=== PATIENT | male | born 1940 | race Caucasian/White ===

== ENCOUNTER 2023-02-10 09:44 | Outpatient (RCR) | payer OTHER, SELFPAY | END 2023-02-10 23:59 | disposition home or self-care (01) | LOC: RPT 09:44 | PROVIDERS: ATTENDING PHYSICIAN Specialist; PRIMARYCARE PHYSICIAN Family Medicine | DX: Z47.1 Aftercare following joint replacement surgery (principal); Z96.611 Presence of right artificial shoulder joint; Z73.6 Limitation of activities due to disability | CPT/HCPCS: 97110; 97140; 97162 ==

== ENCOUNTER 2023-03-16 08:54 | Outpatient (RCR) | payer OTHER, SELFPAY | END 2023-03-16 23:59 | disposition home or self-care (01) | LOC: RPT 08:54 | PROVIDERS: ATTENDING PHYSICIAN Specialist; PRIMARYCARE PHYSICIAN Family Medicine | DX: Z47.1 Aftercare following joint replacement surgery (principal); Z73.6 Limitation of activities due to disability; M62.81 Muscle weakness (generalized); M25.511 Pain in right shoulder; Z96.611 Presence of right artificial shoulder joint | CPT/HCPCS: 97110; 97140 ==

== ENCOUNTER 2023-03-25 08:38 | Outpatient (RCR) | payer OTHER, SELFPAY | END 2023-03-25 23:59 | disposition home or self-care (01) | LOC: RPT 08:38 | PROVIDERS: ATTENDING PHYSICIAN Specialist; PRIMARYCARE PHYSICIAN Family Medicine | DX: Z47.1 Aftercare following joint replacement surgery (principal); Z73.6 Limitation of activities due to disability; M62.81 Muscle weakness (generalized); Z96.611 Presence of right artificial shoulder joint | CPT/HCPCS: 97110; 97140 ==

== ENCOUNTER → 2023-10-28 08:19 | Outpatient (REF) | payer OTHER, SELFPAY | LOC: MRI 3T 08:19 | PROVIDERS: ATTENDING PHYSICIAN Specialist; FAMILY PHYSICIAN Family Medicine | DX: F03.90 Unspecified dementia, unspecified severity, without behavioral disturbance, psychotic disturbance, mood disturbance, and anxiety (principal) | CPT/HCPCS: 70551 ==

== ENCOUNTER 2024-02-29 00:02 | Emergency (ER) | payer MEDICARE, OTHER, SELFPAY ==
[2024-02-29 00:24] VITALS: BP 116/51
--- NOTE | 2024-02-29 03:18 | ED.GENMED ---
History of Present Illness
General
Chief Complaint: Fall
Source: patient
Exam Limitations: none
Time Seen by Provider: 02/29/24 03:13
Nursing documentation reviewed up to this point in time: agreed with
History of Present Illness
History of Present Illness:
83-year-old male with a past medical history as noted presents to the emergency room from [facility] for evaluation after a fall. Patient apparently has a history of dementia. He is in long-term care at [facility] and apparently today was walking
in the halls and had an unwitnessed fall with head strike. He was found to have a laceration to frontal scalp and was sent to the ER for evaluation. No other apparent injuries. He is not on blood thinners. Patient is confused but apparently at
his baseline. He cannot tell me why he is here. He denies any pain on review of systems including denying headache, neck pain, back pain, chest pain, abdominal pain, pain in his extremities.
Past History
Past History
ED Past Medical History: HTN and Hypercholesterolemia; Negative IDDM or NIDDM
ED Past Surgical History: Negative Cardiac
Social History
Tobacco: Non-smoker
Alcohol: Occasional
Drug: None
Personal:
Living: with family
Employment: Retired
Family History
Family History: Negative Early CAD
Review of Systems
Review of Systems
Unable to obtain full review of systems at this time due to: dementia
All Other Systems: Not applicable
Phy Exam
Physical Exam
Physical Exam:
General: Sleeping comfortably in bed but arousable to voice, oriented to person but not place or time, follows commands and answers questions appropriately
Head: Normocephalic, patient has approximately 3 cm linear laceration frontal scalp roughly midline
Eyes: Conjunctiva normal, pupils equal round and reactive to light bilaterally
Throat: Airway intact, handling secretions, tongue atraumatic
Neck: Trachea midline, no cervical spine tenderness
Back: No signs of trauma to the back or flank and no tenderness in the thoracic or lumbar spine
Lungs: Breathing comfortably with no distress
Heart: Regular rate; no chest wall or rib tenderness
Abd: Soft, non distended, nontender
Neuro: No gross deficits, moving all extremities equally without focal deficit
Skin: Scalp laceration as above, no other abrasions, ecchymosis or other signs of trauma noted
Extremities: Atraumatic, warm and well-perfused with good pulses, no reproducible tenderness and allows for passive range of motion all joints of the upper and lower extremities without pain
Scores
Heart Failure Risk
Heart Failure Risk Score: Not Applicable
Heart Score for Chest Pain Patients
STEMI patient?: Not applicable
Withdrawal Assessment of Alcohol
Withdrawal Assessment Completed?: Not applicable
Course
Orders/Labs/Results
Orders:
Orders
02/29/24 00:11
CT Head W/o Iv Contrast Urgent
Comment:
Reason For Exam: fell, hit head
02/29/24 03:19
Lidocaine/Epinephrine/Tetracai [Let Topical Anesthetic Gel] 3 ml .ROUTE .[facility]
Vital Signs
Initial and Last Documented VS:
Initial Vital Signs
Temp Pulse Resp BP Pulse Ox
36.4 C 78 16 116/51 98
02/29/24 00:24 02/29/24 00:24 02/29/24 00:24 02/29/24 00:24 02/29/24 00:24
Last Documented Vital Signs
Temp Pulse Resp BP Pulse Ox
36.4 C 78 15 116/51 98
02/29/24 00:24 02/29/24 00:24 02/29/24 02:04 02/29/24 00:24 02/29/24 00:24
Procedures
Laceration Closure
Scalp:
Status of Wound: clean
Size of Wound in cm: 3
Description of Wound Edges: ragged
Preparation: cleaned with saline
Anesthesia: Topical-LET
Revision/Debridement: minor revision
Type of Closure: single layer closure
Skin Closure Material: 4-0 prolene
Number of sutures: 4
MDM/Problems Addressed
Differential Diagnosis Includes:
Traumatic injury�concussion, subarachnoid/subdural hemorrhage, minor head strike with scalp contusion/laceration
MDM/Problems Addressed:
83-year-old male with a history of dementia presents to the ER after an unwitnessed fall; sustained a head strike with laceration to the frontal scalp. He is not on blood thinners. No other apparent injuries. Vitals and exam as above. He was
sent for a CT head which was negative for any acute pathology on review of vision radiology report. Anesthetized, irrigated and repaired laceration as documented in procedure note. Stable for discharge back to halfway.
*Radiology
Radiology exam reviewed: preliminary read by ED provider and radiology read reviewed
*Pulse Oximetry
Patient hypoxic: no
*Critical Care Note
Total Time (30-74mins, 75-104mins- exclusive of procedures): Not Applicable
Data Reviewed
Source: patient, records and halfway
Patient Management
Discussion with other providers: skilled nursing staff (spoke directly with halfway staff)
ED Attending Note
-
Portions of this chart may have been created with voice recognition software.� Occasional wrong word or��sound alike� substitutions may have occurred due to the inherent limitations of voice recognition software.
Discharge Plan
Departure
Patient Disposition: Home (Routine Discharge)
Date of Disposition: 02/29/24
Time of Disposition: 03:50
Patient with high blood pressure during this ER visit?: No
Discharge Problem:
Laceration of scalp
Instructions: Laceration Repair With Stitches (DC)
Prescriptions:
No Action
simvastatin 40 mg Tablet
40 mg PO HS
lutein-zeaxanthin
1 cap PO HS
oxycodone 5 mg tablet
5 - 10 mg PO Q6H PRN (Reason: moderate-severe pain) Qty: 30 0RF
Rx Instructions:
1 tab for moderate pain, 2 if severe.
Dx total joint.
dexamethasone 4 mg tablet
4 mg PO BID Qty: 7 0RF
Rx Instructions:
Start night of discharge and take twice a day until finished.
Take with food.
ondansetron HCl 4 mg tablet
4 mg PO Q6H PRN (Reason: nausea and vomiting) Qty: 30 0RF
Rx Instructions:
Can take 1/2 hour prior to Oxycodone if experiencing recurrent nausea.
famotidine [Pepcid] 20 mg tablet
20 mg PO HS Qty: 30 0RF
Rx Instructions:
Take nightly while on Aspirin post-surgery to prevent GI upset.
mupirocin 2 % ointment
1 applic intranasal BID Qty: 1 0RF
Patient Comments:
last administered 12/15 a.m.
fluticasone propion-salmeterol [Advair HFA] 230-21 mcg/actuation Hfa Aerosol Inhaler
2 puff INHALATION [id number] PRN (Reason: SOB)
aspirin 325 mg tablet
325 mg PO DAILY Qty: 30 0RF
Rx Instructions:
Take daily x4 weeks for blood clot prevention.
docusate sodium [Colace] 100 mg capsule
100 mg PO BID Qty: 30 0RF
sennosides [senna] 8.6 mg tablet
17.2 mg PO BID Qty: 30 0RF
acetaminophen [Acetaminophen Extra Strength] 500 mg tablet
1,000 mg PO Q6H Qty: 60 0RF
Rx Instructions:
DO NOT exceed >4000 mg daily.
lisinopril-hydrochlorothiazide 20-25 mg Tablet
1 tab PO HS Qty: 0 0RF
Rx Instructions:
HOLD IF systolic blood pressure <130 while on Oxycodone.
Referrals:
[place],Valentin Justin, DO [Family Provider] - Follow up in 5-7 days
Activity Restrictions/Additional Instructions:
You were seen in the emergency room after a fall. Unfortunately you sustained a laceration to your scalp. This laceration was repaired with stitches. The stitches must be removed in 7 days. You can either return here to the emergency room,
follow-up with your primary doctor, or go to urgent care for suture removal. If he notes any signs of infection please return immediately.
Thank you for visiting the Emergency Department at [facility].
1. Please schedule a follow up appointment as directed. Call first thing tomorrow morning to make an appointment.
2. If indicated, please take your medications as instructed and indicated on discharge paperwork.
3. If any of your symptoms do not improve, or persist, or become more severe within 6-12 hours, please return to the emergency department for further care.
4. Please return to the emergency department if you develop a headache, neck pain/stiffness, fever greater than 100.4F, chest pain, shortness of breath, persistent nausea, vomiting, slurred speech, difficulty walking, numbness/tingling, weakness,
signs of infection or any other symptoms that are worrisome to you.
Please call [phone] if you have any questions.
Interventions
Interventions:
*Risk Screen - Suicide Last Done: 02/29/24 00:08
*General Assessment Last Done: 02/29/24 00:08
*Neglect/Abuse Screening Last Done: 02/29/24 00:08
*ED COVID-19 Vaccine History Last Done: 02/29/24 00:08
ED-Musculoskeletal Assessment Last Done: 02/29/24 00:08
ED- Neurological Assessment Last Done: 02/29/24 00:08
ED-Skin Assessment Last Done: 02/29/24 00:08
Discharge Date and Time
Print Language: INDONESIAN
[2024-02-29 03:55] VITALS: BP 123/49
[2024-02-29] MEDS: ADACEL 0.5 ML IM (05:09)
== END 2024-02-29 06:13 | disposition home or self-care (01) ==
LOC: EMR 00:02
PROVIDERS: EMERGENCY PHYSICIAN Emergency Medicine; FAMILY PHYSICIAN Internal Medicine
DX: S01.01XA Laceration without foreign body of scalp, initial encounter (principal); W19.XXXA Unspecified fall, initial encounter; Y93.01 Activity, walking, marching and hiking; I10 Essential (primary) hypertension; E78.00 Pure hypercholesterolemia, unspecified; F03.90 Unspecified dementia, unspecified severity, without behavioral disturbance, psychotic disturbance, mood disturbance, and anxiety
CPT/HCPCS: 99284; 12002; 90471; 70450; 90715

== ENCOUNTER 2024-03-08 16:54 | Inpatient (IN) | payer MEDICARE, OTHER, SELFPAY ==
[2024-03-08] VITALS (7 sets, daily range): BP systolic 102–161; BP diastolic 58–112
[2024-03-08 14:12] LABS: % Basophils 0.5 % (0-2); % Eosinophils 1.3 % (0-6); % Immature Granulocytes 0.4 % (0-0.5); % Lymphocytes 7.1 % (20.5-51.1); % Monocytes 7.8 % (1.7-9.3); % Neutrophils 82.9 % (42.2-75.2); Absolute Basophils 0.1 10^3/uL (0-0.2); Absolute Eosinophils 0.1 10^3/uL (0-0.7); Absolute Lymphocytes 0.7 10^3/uL (1.2-3.4); Absolute Monocytes 0.7 10^3/uL (0.1-0.6); Absolute Neutrophils 7.8 10^3/uL (1.4-6.5); Hematocrit 29.7 % (39.0-52.0); Hemoglobin 9.7 g/dL (13.0-18.0); Mean Corp Hgb Conc. 32.7 g/dL (33.0-37.0); Mean Corpuscular Hgb 31.8 pg (27.0-31.0); Mean Corpuscular Volume 97.4 fL (80.0-94.0); Mean Platelet Volume 9.7 fL (7.4-10.4); Nucleated Red Blood Cells % 0 % (-); Platelet Count 228 10^3/uL (130-400); Red Blood Cell Count 3.05 10^6/uL (4.70-6.10); Red Cell Dist. Width 12.5 % (11.5-14.5); White Blood Cell Count 9.4 10^3/uL (4.8-10.8)
[2024-03-08 14:36] LABS: Blood Urea Nitrogen 58 mg/dl (9-20); Calcium 8.9 mg/dl (8.4-10.2); Carbon Dioxide 27 mmol/L (22-30); Chloride 106 mmol/L (98-107); Glucose 119 mg/dl (70-99); Sodium 142 mmol/L (135-145)
[2024-03-08 14:37] LABS: COVID-19 Antigen Negative (Negative)
[2024-03-08 14:43] LABS: Troponin I 0.012 ng/ml
--- NOTE | 2024-03-08 14:50 | ED.GENMED ---
History of Present Illness
General
Chief Complaint: Failure to Thrive
Source: records and spouse
Exam Limitations: dementia
Time Seen by Provider: 03/08/24 13:59
Nursing documentation reviewed up to this point in time: agreed with
History of Present Illness
History of Present Illness:
83-year-old male dementia from his facility decreased p.o. intake decreased responsiveness for 2 days fell a few days ago seen in the ER had a CAT scan of his head and some sutures placed, since then he has not been himself per the , had an
x-ray of his knee recently which was negative, my evaluation he is resting comfortably arousable but does appear to be confused more so than his baseline per the also complaining of some left hip and thigh pain when ranged
Past History
Past History
ED Past Medical History: HTN and Hypercholesterolemia; Negative IDDM or NIDDM
ED Past Surgical History: Negative Cardiac
Social History
Tobacco: Non-smoker
Alcohol: Occasional
Drug: None
Personal:
Living: with family
Employment: Retired
Family History
Family History: Negative Early CAD
Review of Systems
Review of Systems
Unable to obtain full review of systems at this time due to: dementia
Other source history: family
All Other Systems: Not applicable
Phy Exam
Physical Exam
Physical Exam:
Physical Exam
General: Elderly male resting comfortably eyes closed
Neck: No jaundice
Heart: Regular
Lungs: No crackles
Abdomen: Nontender
Neuro: Pupils 4 OU, opens eyes to deep stimulation moves his arms legs to painful stimuli
Skin: Sutures of his left scalp
Psychiatric: Demented
Extremities: Mild pain with range of motion of his left hip and proximal thigh
Course
Orders/Labs/Results
Orders:
Orders
03/08/24 13:48
Electrocardiogram (*1) Urgent
Reason for Study: Fatigue / Weakness
03/08/24 13:49
EKG- Treatment ONCE
03/08/24 13:55
Basic Metabolic Panel Urgent
COVID-19 Antigen Urgent
Source: Nasal Swab
Complete Blood Count/With Diff Urgent
Troponin I Urgent
Influenza A+B Rapid Molecular Urgent
NIHARIKA Source: Nasal Swab
Specimen Description:
03/08/24 14:45
Hip, Left 2-3 Views [CR Hip - LT w/wo Pel 2-3 Vw*] Urgent
Comment:
Reason For Exam: FALL
Include a pelvis x-ray?: Yes
03/08/24 14:46
Straight cath- Treatment ONCE
Urinalysis Reflex To Culture Urgent
Femur, Left 2 View [CR Femur - Left Min 2 Vw] Urgent
Comment:
Reason For Exam: FALL
03/08/24 14:47
CT Cervical Spine W/o Iv Contr Urgent
Comment:
Reason For Exam: FALL
CT Head W/o Iv Contrast Urgent
Comment:
Reason For Exam: FALL
Cardiac Monitoring- Treatment ONCE
Abnormal Lab Results
03/08/24
13:55
RBC 3.05 L 10^6/uL
(4.70-6.10)
Hgb 9.7 L g/dL
(13.0-18.0)
Hct 29.7 L %
(39.0-52.0)
MCV 97.4 H fL
(80.0-94.0)
MCH 31.8 H pg
(27.0-31.0)
MCHC 32.7 L g/dL
(33.0-37.0)
Absolute Neuts (auto) 7.8 H 10^3/uL
(1.4-6.5)
Absolute Lymphs (auto) 0.7 L 10^3/uL
(1.2-3.4)
Absolute Monos (auto) 0.7 H 10^3/uL
(0.1-0.6)
Neutrophils % 82.9 H %
(42.2-75.2)
Lymphocytes % 7.1 L %
(20.5-51.1)
BUN 58 H mg/dl
(9-20)
Creatinine 1.7 H mg/dL
(0.7-1.3)
Glucose 119 H mg/dl
(70-99)
03/08/24 13:55
03/08/24 13:55
Vital Signs
Initial and Last Documented VS:
Initial Vital Signs
Temp Pulse Resp BP Pulse Ox
97.5 F 93 16 126/58 97
03/08/24 13:45 03/08/24 13:45 03/08/24 13:45 03/08/24 13:45 03/08/24 13:45
Last Documented Vital Signs
Temp Pulse Resp BP Pulse Ox
97.5 F 93 16 126/58 98
03/08/24 13:45 03/08/24 13:45 03/08/24 13:45 03/08/24 13:45 03/08/24 13:45
MDM/Problems Addressed
Differential Diagnosis Includes:
Deconditioning dehydration UTI delayed trauma hip fracture pelvic fracture
MDM/Problems Addressed:
Confusion
Chronic conditions affecting care: Neurological disorder
Acute Exacerbation and/or Progression of Chronic Illness: Neurological disorder
*Radiology
Radiology exam reviewed: preliminary read by ED provider
*Pulse Oximetry
Patient hypoxic: no
*EKG
Interpreted by ED Provider?: Yes
Interpretation: abnormal
Comparison EKG: no comparison EKG present
Heart Rate: 78
Rate: normal
Rhythm: sinus
Ischemia: non-specific ST changes
*Door Puller Interpretation
Rate: normal
Interpretation: normal
Heart Rate: 78
Rhythm: sinus
*Critical Care Note
Total Time (30-74mins, 75-104mins- exclusive of procedures): Not Applicable
Data Reviewed
Review of Other/Old Records Reveals: Labs and Records
Source: spouse, previous radiology exam and previous hospital records
ED Attending Note
-
Portions of this chart may have been created with voice recognition software.� Occasional wrong word or��sound alike� substitutions may have occurred due to the inherent limitations of voice recognition software.
Discharge Plan
Departure
Prescriptions:
No Action
simvastatin 40 mg Tablet
40 mg PO HS
lutein-zeaxanthin
1 cap PO HS
oxycodone 5 mg tablet
5 - 10 mg PO Q6H PRN (Reason: moderate-severe pain) Qty: 30 0RF
Rx Instructions:
1 tab for moderate pain, 2 if severe.
Dx total joint.
dexamethasone 4 mg tablet
4 mg PO BID Qty: 7 0RF
Rx Instructions:
Start night of discharge and take twice a day until finished.
Take with food.
ondansetron HCl 4 mg tablet
4 mg PO Q6H PRN (Reason: nausea and vomiting) Qty: 30 0RF
Rx Instructions:
Can take 1/2 hour prior to Oxycodone if experiencing recurrent nausea.
famotidine [Pepcid] 20 mg tablet
20 mg PO HS Qty: 30 0RF
Rx Instructions:
Take nightly while on Aspirin post-surgery to prevent GI upset.
mupirocin 2 % ointment
1 applic intranasal BID Qty: 1 0RF
Patient Comments:
last administered 10/31 a.m.
fluticasone propion-salmeterol [Advair HFA] 230-21 mcg/actuation Hfa Aerosol Inhaler
2 puff INHALATION [id number] PRN (Reason: SOB)
aspirin 325 mg tablet
325 mg PO DAILY Qty: 30 0RF
Rx Instructions:
Take daily x4 weeks for blood clot prevention.
docusate sodium [Colace] 100 mg capsule
100 mg PO BID Qty: 30 0RF
sennosides [senna] 8.6 mg tablet
17.2 mg PO BID Qty: 30 0RF
acetaminophen [Acetaminophen Extra Strength] 500 mg tablet
1,000 mg PO Q6H Qty: 60 0RF
Rx Instructions:
DO NOT exceed >4000 mg daily.
lisinopril-hydrochlorothiazide 20-25 mg Tablet
1 tab PO HS Qty: 0 0RF
Rx Instructions:
HOLD IF systolic blood pressure <130 while on Oxycodone.
Interventions
Interventions:
*Risk Screen - Suicide Last Done: 03/08/24 13:45
*General Assessment Last Done: 03/08/24 13:45
*Neglect/Abuse Screening Last Done: 03/08/24 13:45
ED- Fall Risk Assessment Last Done: 03/08/24 13:45
*ED COVID-19 Vaccine History Last Done: 03/08/24 13:45
Discharge Date and Time
Print Language: HEBREW
--- NOTE | 2024-03-08 16:57 | HPS.HSE ---
Family Physician
-
Family Physician: Valentin Manriquez, DO
Chief Complaint
-
Failure to thrive/weakness/altered mental status
History of Present Illness
83 years old male was brought in from [facility]. Patient is nonverbal and unable to provide history due to dementia. I called his over the phone and she provided the following history
Patient was brought in from [facility] due to altered mental status. He has not woken up in last 2 days, remained sleepy and sometimes with open eyes. He has not eaten for 2 days also. Patient nonverbal for almost a month. He had a fall last
weekend and was brought into [facility] on ER with imaging studies that showed no acute fracture or intracranial abnormality.
Patient was homebound until December 2023 when he was admitted to [facility]/psychiatry unit and he remained there for almost 2 weeks. He was placed on medications for dementia with behavioral changes. Patient was admitted to [facility]
group home, he did fairly well at the beginning but his condition started to deteriorate. He has not talked in almost a month. He was eating until 2 days ago. reported that he always complained of pain in his legs and his hips in the past.
No fevers. No history of choking or aspiration.
In the ER, he did not have leukocytosis, creatinine 1.7. Potassium is pending. Sodium 142.
Medical History
Past Medical History
Past Medical History: Reports Other (HTN,hyperlipidemia, frontotemporal dementia, depression, aphasia, CKD. )
Past Surgical History: Reports Other (No recent major surgery )
Social History
Unable to obtain full social history at this time due to: Dementia
Family History
Family History: Unable to Obtain (dementia )
Allergies / Home Medications
Allergies reflects when Allergies were last updated in [employer].
Home Medications with original date entered in [employer]
Allergy/Medication List:
Allergies
Allergy/AdvReac Type Severity Reaction Status Date / Time
No Known Allergies Allergy Verified 02/29/24 00:08
Home Medications
acetaminophen 325 mg tablet 650 mg PO Q6HPRN PRN mild pain/fever>100.4 03/08/24
bacitracin 500 unit/gram topical ointment 1 applic topical BID scalp suture site 03/08/24
bisacodyl 10 mg rectal suppository 10 mg MS DAILYPRN PRN if mom ineffective 03/08/24
clonazepam 0.5 mg tablet 0.5 mg PO TID 03/08/24
donepezil 10 mg tablet 10 mg PO HS 03/08/24
magnesium hydroxide 400 mg/5 mL oral suspension (Milk of Magnesia) 30 ml PO [id number] PRN no bm in 3 days 03/08/24
melatonin 3 mg tablet 3 mg PO HS 03/08/24
quetiapine 200 mg tablet 200 mg PO HS 03/08/24
quetiapine 50 mg tablet 50 mg PO DAILY 03/08/24
sodium phosphates 19 gram-7 gram/118 mL enema (Fleet Enema) 118 ml MS DAILYPRN PRN if suppository ineffective 03/08/24
trazodone 50 mg tablet 25 mg PO HS 03/08/24
Review of Systems
-
Unable to obtain full review of systems at this time due to: Dementia
Physical Exam
Vital Signs
Vital Signs
Temp Pulse Resp BP Pulse Ox
97.5 F 80 13 124/59 99
03/08/24 13:45 03/08/24 15:06 03/08/24 15:06 03/08/24 15:06 03/08/24 15:06
Physical Exam
General: No Apparent Distress and Appears Chronically Ill
HEENT: Atraumatic
Respiratory: Decreased Breath Sounds; No Wheezes
Cardiac: S1/S2
GI: Soft, Non Tender and Non Distended
Rectal: No Maroon Stools
Genito-urinary: Clear Urine
Musculoskeletal: No Cyanosis and No Edema
Skin: Warm; No Jaundice
Neuro: Awake (non verbal, open eyes, staring at times, did not follow commands. )
Psych: Apparent Dementia
Laboratory Results
-
03/08/24 13:55
Laboratory Results
Total Bilirubin Cancelled 03/08/24 13:55
AST Cancelled 03/08/24 13:55
ALT Cancelled 03/08/24 13:55
Alkaline Phosphatase Cancelled 03/08/24 13:55
Troponin I 0.012 ng/ml 03/08/24 13:55
Impression/Plan
-
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
# Change in mental status
Admit the patient to the hospital
Rule out infectious/medication side effects/worsening dementia and failure to thrive
Stat CT of the head. Scan of the head done 02/28 after a fall showed moderate atrophy with no acute intracranial abnormality.
Will do blood culture, urine test and culture if needed
Patient seems to have mild cough in the ER, Order chest x-ray
Patient seems to express pain while palpating his abdomen, not distended, , Will do CT scan of the chest/abdomen/pelvis as patient unable to provide history and to rule out major pathologies.
Give IVF
Speech therapy
PT/OT evaluation, although patient seems to have significantly diminished physical performance status
Will lower the doses of quetiapine, clonazepam and follow-up with psychiatry recommendations
Monitor temperature curve, vitals signs
Continue with supportive care
# Acute kidney injury. We do not have his baseline creatinine.
Per record chronic kidney disease.
Will give IV fluid, bladder scan did not show retention.
# History of dementia with behavioral changes
I reviewed his antipsychotic medications with , will keep medications but lowered the doses,
Consult psychiatry, appreciate help
Total time spent to see the patient, examine the patient, review data and lab results, discussed treatment plan with patient, his , ER doctor and nursing staff around 75 minutes
[2024-03-08 17:06] LABS: Urine Albumin Trace (Neg - Trace); Urine Bilirubin Negative (Negative); Urine Character Clear (Clear); Urine Color Yellow; Urine Glucose Negative (Negative); Urine Ketone Negative (Negative); Urine Leukocyte Negative (Negative); Urine Nitrite Negative (Negative); Urine Occult Blood Negative (Negative); Urine Urobilinogen Negative (Neg - 1+)
[2024-03-08 17:30] LABS: Blood Urea Nitrogen 57 mg/dl (9-20); Calcium 9.3 mg/dl (8.4-10.2); Carbon Dioxide 29 mmol/L (22-30); Chloride 104 mmol/L (98-107); Glucose 110 mg/dl (70-99); Potassium 4.6 mmol/L (3.5-5.1); Sodium 142 mmol/L (135-145); eGFR 37.35
[2024-03-08] MEDS: NSS 1000 IV (17:38)
[2024-03-08] MEDS: ARICEPT 10 MG PO (21:33)
[2024-03-08] MEDS: SENOKOT 17.2 MG PO (21:33)
[2024-03-08] MEDS: KLONOPIN 0.5 MG PO (21:33)
[2024-03-08] MEDS: PEPCID 20 MG PO (21:33)
[2024-03-08] MEDS: DESYREL 25 MG PO (21:33)
[2024-03-09 07:00] LABS: Hematocrit 27.1 % (39.0-52.0); Hemoglobin 9.2 g/dL (13.0-18.0); Mean Corp Hgb Conc. 33.9 g/dL (33.0-37.0); Mean Corpuscular Hgb 32.9 pg (27.0-31.0); Mean Corpuscular Volume 96.8 fL (80.0-94.0); Mean Platelet Volume 9.8 fL (7.4-10.4); Platelet Count 247 10^3/uL (130-400); Red Cell Dist. Width 12.3 % (11.5-14.5); White Blood Cell Count 8.7 10^3/uL (4.8-10.8)
[2024-03-09 07:25] LABS: ALT (SGPT) 39 U/L (0-50); AST (SGOT) 53 U/L (17-59); Alkaline Phosphatase 123 U/L (38-126); Blood Urea Nitrogen 45 mg/dl (9-20); Calcium 8.8 mg/dl (8.4-10.2); Carbon Dioxide 26 mmol/L (22-30); Chloride 105 mmol/L (98-107); Estimated Creatinine Clearance 36 ml/min; Glucose 86 mg/dl (70-99); Potassium 3.8 mmol/L (3.5-5.1); Sodium 138 mmol/L (135-145); Total Bilirubin 0.6 mg/dl (0.2-1.3); Total Protein 5.5 g/dl (6.3-8.2); eGFR 55.19
[2024-03-09 07:30] VITALS: BP 161/76
[2024-03-09] MEDS: SENOKOT 17.2 MG PO ×2 (08:00→21:13)
[2024-03-09] MEDS: KLONOPIN 0.5 MG PO (08:00)
[2024-03-09] MEDS: SEROQUEL 50 MG PO (08:00)
--- NOTE | 2024-03-09 09:34 | W.PN.HOSP.TC ---
Today's Communication/Plan
-
continue with mild IVF
f/w psych recommendations
Assessment / Plan
Assessment / Plan
Physical Exam
General: No Apparent Distress and Appears Chronically Ill
HEENT: Atraumatic
Respiratory: Decreased Breath Sounds; No Wheezes
Cardiac: S1/S2
GI: Soft, Non Tender and Non Distended
Rectal: No Maroon Stools
Genito-urinary: Clear Urine
Musculoskeletal: No Cyanosis and No Edema
Skin: Warm; No Jaundice
Neuro: Awake (non verbal, open eyes, staring at times, did not follow commands. )
Psych: Apparent Dementia
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
# Change in mental status
Rule out infectious/medication side effects/worsening dementia and failure to thrive
No signs of active infection, normal WBC, no fevers
He seems more alert today, still unable to hold conservation
CT of the head: No CT evidence for acute intracranial hemorrhage. Positive atrophy and volume loss of cerebrum and cerebellum.
Urine test clean
Negative COVID & Flu.
CT Chest/ abdomen/ pelvis showed no acute findings but plethora of findings including calcific atherosclerotic plaques in arteries/groundglass opacities in lungs, sterile coral colitis/fecal impaction, abdominal aortic aneurysm 2.3 cm in diameter.
Speech therapy is recommending NPO, will continue modified diet as comfort feeding.
PT/OT evaluation, although patient seems to have significantly diminished physical performance status
Lowered the doses of quetiapine, clonazepam and follow-up with psychiatry recommendations
Monitor temperature curve, vitals signs
Continue with supportive care
# Acute kidney injury.
Creatinine came down after IVF
Per record chronic kidney disease.
# Elevated BP
Could be untreated primary HTN
Will do oral amlodipine
# Scalp wound
he scratched, re-dressing the wound.
# History of dementia with behavioral changes
I reviewed his antipsychotic medications with ,
Seems approaching advanced stage of dementia.
Consult psychiatry, appreciate help
Total time spent to see the patient, examine the patient, review data and lab results, discussed treatment plan with patient,and nursing staff around 55 minutes
Anticipated Discharge: > 48 hours
Subjective/Interval History
-
Date of Service: March 09, 2024
Objective Data
-
Labs:
Laboratory Results
03/09/24
06:40
WBC 8.7
Hgb 9.2 L
Hct 27.1 L
Plt Count 247
Sodium 138
Potassium 3.8
Chloride 105
Carbon Dioxide 26
BUN 45 H
Creatinine 1.3
Glucose 86
Calcium 8.8
Total Bilirubin 0.6
AST 53
ALT 39
Alkaline Phosphatase 123
Vital Signs:
Vital Signs
Temp Pulse Resp BP Pulse Ox
98.7 F 81 16 161/76 93
03/09/24 07:30 03/09/24 07:30 03/09/24 07:30 03/09/24 07:30 03/09/24 07:30
[2024-03-09] MEDS: DULCOLAX 10 MG PO (09:50)
[2024-03-09 10:08] VITALS: BP 126/68; PULSE 99; O2SAT 99
[2024-03-09 10:17] VITALS: BP 126/98; PULSE 98; O2SAT 99
--- NOTE | 2024-03-09 10:44 | PTOTSP ---
ST Acute Care Evaluation
Pt currently presents with clinical signs of suspected moderately-severe pharyngoesophageal dysphagia characterized by immediate and delayed weak coughing and/or throat clearing responses to ingestion of small and large quantities of both thin and
thick consistencies indicative of suspected airway invasion from either ingestion and/or regurgitation - possibly due to reflux/esophageal dysfunction.
Recommendations:
- NPO except only CRITICAL meds in puree ONLY when pt is fully awake and alert. No ARHP at this time.
- Consider initiating GOC conversation - pt's dysphagia could be associated with medication regimen vs. progression of dementia. Instrumental swallow study could be considered; however, feeding tubes are not recommended in this population of
patients.
- Aspiration precautions: HOB upright as often as possible; oral care QID.
- OFFSET SECOND PRESS OPERATOR to f/u to re-assess pt's candidacy to resume PO intake and to determine if pt would be appropriate for an instrumental swallow study if it is in line with the pt's GOC.
[2024-03-09 12:12] VITALS: BMI 18.2
[2024-03-09] MEDS: D5/0.9% SODIUM CHLORIDE 1000 IV (13:53)
[2024-03-09 15:20] VITALS: BP 149/70
--- NOTE | 2024-03-09 15:53 | CON.MD ---
Consultation - Medical
-
PATIENT SEEN CHART REVIEWED. SPOKE WITH DEVIN AND WITH DR TRUJILLO BY TEXT. AT BEDSIDE. PATIENT IS A 83 YR OLD MALE DX W FRONTO TEMPORAL DEMENTIA ACCORDING TO IN IN JUNE 2023. HE DID OKAY FOR A WHILE BUT THEN BECAME LESS AND LESS ABLE TO SLEEP
AND WOULD ROAM THE HOUSE AT ALL HOURS 'MOVING FURNITURE'. HIS PCP STARTED SEROQUEL 12.5 MG Q HS. HE WAS HOSP AT [facility] WHERE DOSE WAS INC AND TRAZODONE WAS ADDED. HE WAS T HERE FOR AN EXTENDED PERIOD BC SHE FELT HE COULD NO LONGER LIVE AT
HOME AND HE FINALLY WAS DC TO [facility]. FELT HE DID OKAY THERE FOR A WHILE. SHE SAID PEOPLE SEEMED TO CARE ALTHOUGH SHE FELT THEY WERE VERY UNDERSTAFFED AND THE PLACE WAS NOT IN GREAT REPAIR. SHE BELIEVES THE SEROQUEL WAS INC
THERE TO CURRENT DOSE AND ALSO KLONOPIN WAS ADDED. HE FELL RECENTLY AND WAS SEEN IN ER HEAD WAS SUTURED. IN THE LAST TWO DAYS HE HAS BECOME INCREASINGLY LISTLESS. SLEEPING MUCH OF THE DAY. NOT EATING OR DRINKING. VERY LITTLE COMMUNICATION AND HE
WAS BROUHT HERE. HE HAS NO PRIOR PSYCH HX OTHER THAN RECENTLY DX DEMENTIA. HE WAS NOT AT ALL COMMUNICATIVE WHEN I SAW HIM TODAY. I WAS ABLE TO ROUSE HIM. I ASKED HIM IF OUR TALKING WAS DISTURBING HIM AND HE OPENED HIS EYES, SAID 'YES' AND WENT
BACK TO SLEEP. HIS LUNCH TRAY WAS UNTOUCHED AT THE BEDSIDE. CURRENT MEDS SEROQUEL 50 AM 200 Q HS (ORDER REDUCED TO 50 Q AM HERE) TRAZODONE 25 Q HS ARICEPT 10 MG Q HS KLONOPIN 0.5 MG MG TID (REDUCED TO BID HERE) . OF NOTE PATIENT LISTED FULL
CODE. PATIENT'S HAD ALREADY MADE HIM DNR AT [facility] AND HAS CONSULTED W HOSPICE THERE FOR WHEN HE RETURNS.
PAST PSYCH HX NONE
MEDICAL HX SEE ABOVE HTN HLD CKD MIGRAINE MACROCYTIC ANEMIA ASTHMA APHASIC CAT SCAN WITHOUT ACUTE CHANGES OSTEOARTHRITIS DJD CREATININE NOW 1.3 HGB 9.2
FH NONE
SUBSTANCE ABUSE NONE
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
MSE PATIENT IS NOT VERY VERBAL. HE SPOKE ONE WORD 'YES' SEE ABOVE. HE WAS VERY SEDATED AND BARELY ROUSABLE. UNABLE TO ASSESS THOUGHT PROCESS MOOD ETC BUT BY HX VERY COGNITIVELY IMPAIRED
DX FRONTO TEMPORAL DEMENTIA SEDATION LIKELY SECONDARY TO PSYCHOTROPIC MEDICATION
RECOMMEND HOLD ALL SEDATING PSYCH MEDICATIONS FOR NOW. WILL MONITOR. 250 MG SEROQUEL PLUS KLONOPIN TID AND TRAZODONE AT COULD BE THE REASON FOR HIS SUDDEN SEDATION. HAVE AMENDED FULL CODE TO DNR STATUS PER WHO HAS ALREADY SPOKEN W
HOSPICE AT [facility]. CHECK B12 FOLATE AND TSH. WILL SEE PATIENT IN AM.
[2024-03-09 18:42] LABS: TSH 2.55 uIU/ml (0.47-4.68)
[2024-03-09 19:17] LABS: Vitamin B12 522 pg/ml (239-931)
[2024-03-09] MEDS: MIRALAX PO (21:10)
[2024-03-09] MEDS: DESYREL 50 MG PO (21:13)
[2024-03-09] MEDS: ARICEPT 10 MG PO (21:14)
[2024-03-09 23:15] VITALS: BP 167/92
[2024-03-10] MEDS: D5/0.9% SODIUM CHLORIDE 1000 IV (03:26)
[2024-03-10 06:20] LABS: Hemoglobin 10.1 g/dL (13.0-18.0); Mean Corp Hgb Conc. 33.7 g/dL (33.0-37.0); Mean Corpuscular Hgb 32.3 pg (27.0-31.0); Mean Corpuscular Volume 95.8 fL (80.0-94.0); Mean Platelet Volume 9.7 fL (7.4-10.4); Platelet Count 277 10^3/uL (130-400); Red Blood Cell Count 3.13 10^6/uL (4.70-6.10); Red Cell Dist. Width 11.9 % (11.5-14.5); White Blood Cell Count 6.1 10^3/uL (4.8-10.8)
[2024-03-10 06:54] LABS: ALT (SGPT) 34 U/L (0-50); AST (SGOT) 41 U/L (17-59); Albumin 3.2 g/dl (3.5-5.0); Alkaline Phosphatase 103 U/L (38-126); Blood Urea Nitrogen 33 mg/dl (9-20); Calcium 8.8 mg/dl (8.4-10.2); Carbon Dioxide 28 mmol/L (22-30); Chloride 107 mmol/L (98-107); Estimated Creatinine Clearance 42 ml/min; Glucose 114 mg/dl (70-99); Potassium 4.1 mmol/L (3.5-5.1); Sodium 141 mmol/L (135-145); Total Bilirubin 0.6 mg/dl (0.2-1.3); Total Protein 5.7 g/dl (6.3-8.2); eGFR > 60.00
[2024-03-10 08:08] VITALS: BP 133/69
[2024-03-10] MEDS: SENOKOT 17.2 MG PO ×2 (08:46→21:17)
[2024-03-10] MEDS: RISPERDAL 0.5 MG PO ×2 (08:46→21:17)
[2024-03-10] MEDS: MIRALAX 17 GRAMS PO (08:46)
--- NOTE | 2024-03-10 09:23 | PN.CDI ---
CDI
- -
CDI:
Physician Documentation Request
Admit Date: 03/08/24 16:54
Dear Doctor Aleksandr,
Patient admitted for change of mental status.
03/09 Nutrition Assessment: '124 lbs 12.506 oz BMI 18.2 underweight range. Pts weight previous admission listed as 143 lbs 09/29/23 reflective of a 19 lb (13%) in 5 months, significant
During visit RD able to visulize protrusion of clavical, temporal wasting, orbital area sunken in, and muscle wasting over calfs. With > 10% in 6 months and observed muscle and fat wasting pt meets AND/ASPEN criteria for moderate protein calorie
malnutrition of chronic illness.'
Based on the above information and your assessment, which of the following most accurately represents the patient's nutritional status?
Moderate protein calorie malnutrition
Other (please specify)
[place] Criteria (ACP Hospitalist 2017)
2 or more criteria must be present for either
non severe or severe malnutrition
Note that the criteria differs related to the
presence of an acute or chronic illness
Acute Illness Chronic Illness
Energy Intake Non Severe: <75% for >7 days Non Severe: <75% for >1 month
Severe: <50% for >5 days Severe: <75% for >1 month
Weight Loss Non Severe: 1-2% over 1 week Non Severe: 5% over 1 month
5% over 1 month 7.5% over 3 months
7.5% over 3 months 10% over 6 months
1 year N/A 20% over 1 year
Severe: >2% over 1 week Severe: >5% over 1 month
>5% over 1 month >7.5% over 3 months
>7.5% over 3 months >10% over 6 months
1 year N/A >20% over 1 year
Body Fat Non Severe: Mild Decrease Non Severe: Mild Loss
Severe: Moderate Decrease Severe: Severe Loss
Muscle Mass Non Severe: Mild Decrease Non Severe: Mild Loss
Severe: Moderate Decrease Severe: Severe Loss
Fluid Accumulation Non Severe: Mild Accumulation Non Severe: Mild Accumulation
Severe: Moderate to severe Severe: Moderate to severe
accumulation accumulation
Reduced Wood Scrap Handler Strength Non Severe: N/A Non Severe: N/A
Severe: Measurably reduced Severe: Measurably reduced
Additional criteria that can be used to Determine if Mild or Moderate Malnutrition (Merck Manual 2018)
Mild Moderate Severe
Albumin gm/dl <3.0 gm/dl <2.5 gm/dl <2.0 gm/dl
Pre Albumin mg/dl <15 gm/dl <10 mg/dl <5.0 mg/dl
BMI <18.5 <17 <16
Use of terms such as suspected, likely, concern for, or probable (associated with a specific diagnosis that is being evaluated, monitored, or treated as if it exists) are acceptable and can be coded in the inpatient setting, when documented at the
time of discharge.
Thank you,
Yelena Tyler RN, BSN
CDI Specialist
Available via [place] text
Please use your independent medical judgment in providing your response.
--- NOTE | 2024-03-10 10:02 | W.PN.HOSP.TC ---
Today's Communication/Plan
-
Starting Risperdal
Continue with comfort feeding
Stop IVF
Assessment / Plan
Assessment / Plan
Physical Exam
General: No Apparent respiratory Distress, Chronically Ill
HEENT: Atraumatic, temporal wasting
Respiratory: No Wheezes
Cardiac: S1/S2
GI: Soft, Non Tender and Non Distended
Rectal: No Maroon Stools
Genito-urinary: Clear Urine
Musculoskeletal: No Cyanosis and No Edema. Generalized poor muscle bulk.
Skin: Warm; No Jaundice
Neuro: Awake, said few words, did not follow commands. )
Psych: Apparent Dementia, agitated.
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
# Change in mental status
Ruled out infectious
Likely combination of TME and medication side effects + worsening dementia and failure to thrive
No signs of active infection, normal WBC, no fevers
CT of the head: No CT evidence for acute intracranial hemorrhage. Positive atrophy and volume loss of cerebrum and cerebellum.
Urine test clean
Negative COVID & Flu.
CT Chest/ abdomen/ pelvis showed no acute findings but plethora of findings including calcific atherosclerotic plaques in arteries/ground-glass opacities in lungs, sterile coral colitis/fecal impaction, abdominal aortic aneurysm 2.3 cm in diameter.
Speech therapy is recommending NPO, will continue modified diet as comfort feeding. planning to pursue comfort measures/ hospice
PT/OT evaluation, although patient seems to have significantly diminished physical performance status
Started on low dose Risperdal. Follow-up with psychiatry recommendations
Monitor temperature curve, vitals signs
Continue with supportive care
# Moderate to severe protein-calorie malnutrition.
# Acute kidney injury.
Creatinine came down to 1.1 from 1.7 after IVF
Per record chronic kidney disease.
# Elevated BP
Could be untreated primary HTN
PRN oral amlodipine
# Scalp wound
Not bleeding. Clean wound.
# History of dementia with behavioral changes
We are now adjusting his medications to keep him calm. It might be a heard thing to achieve due to advanced dementia.
Consult psychiatry, appreciate help
# Code status, DNR
Total time spent to see the patient, examine the patient, review data and lab results, discussed treatment plan with patient,and nursing staff around 55 minutes
Anticipated Discharge: 24 - 48 hours
Subjective/Interval History
-
Date of Service: March 10, 2024
No pain issues
Psych meds were held and he got agitated last night
Objective Data
-
Labs:
Laboratory Results
03/10/24
06:07
WBC 6.1
Hgb 10.1 L
Hct 30.0 L
Plt Count 277
Sodium 141
Potassium 4.1
Chloride 107
Carbon Dioxide 28
BUN 33 H
Creatinine 1.1
Glucose 114 H
Calcium 8.8
Total Bilirubin 0.6
AST 41
ALT 34
Alkaline Phosphatase 103
Vital Signs:
Vital Signs
Temp Pulse Resp BP Pulse Ox
97.4 F 79 16 133/69 94
03/10/24 08:08 03/10/24 08:08 03/10/24 08:08 03/10/24 08:08 03/10/24 08:08
I&O
03/09/24 03/10/24 03/11/24
06:59 06:59 06:59
Output Total 300 / 300
Balance -300 / -300
--- NOTE | 2024-03-10 12:31 | CM ---
Cm contacted Bunny's who lives in the community. 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
Plan: Return to [facility] when medically stable.
--- NOTE | 2024-03-10 12:53 | W.PN.UPDATE ---
Update Note
Progress Note Update
patient seen chart reviewed. spoke with nursing and with dr mallory via text. earlier this am patient was restless and naked. he appears to have woken up once seroquel etc was dc'ed. discussed with dr mallory small doses of risperdal which hopefully
will help him remain calm and relatively appropriate without oversedating him. he is easily rousable right now. lying in bed 'watching tv' calmly. ate a reasonable breakfast. yesterday too sedated to eat. b12 folate and tsh are nl. would continue
w risperdal as is. have dc'ed seroquel klonopin and trazodone instead of 'holding' them. try to avoid benzos if possible. will check in w him tomorrow.
[2024-03-10 16:18] VITALS: BP 127/76
--- NOTE | 2024-03-10 16:19 | CM ---
HERMELINDA Swan from [facility] requesting information on patient.
Per Aj they received the referral from [facility], they already have the MD order from [facility] and has already signed.
Per HERMELINDA Swan phone# [phone], he met with the patients spouse yesterday and will begin Hospice when patient returns to [facility].
He is requesting d/c instructions be emailed to [email or web address] or faxed to [phone]
TC to patients spouse and met with her in the room, she is agreeable to [facility] and agreeable to information being emailed to them on d/c.
TC to Verna from [facility] p# [phone], and updated her re hospice per spouse and AJ.
Patient is on the 3rd floor.
IMM completed.
[facility]
report# [phone]

[facility]
[email or web address] or fax to [phone]
[2024-03-10] MEDS: ARICEPT 10 MG PO (21:17)
[2024-03-10] MEDS: PEPCID 20 MG PO (21:17)
[2024-03-10] MEDS: MIRALAX PO (21:18)
[2024-03-10 23:55] VITALS: BP 160/76
[2024-03-11 07:10] VITALS: BP 153/69
[2024-03-11] MEDS: SENOKOT 17.2 MG PO (08:59)
[2024-03-11] MEDS: FLUSH (NSS) 1 FLUSH IV (08:59)
[2024-03-11] MEDS: RISPERDAL 0.5 MG PO ×2 (08:59→22:44)
--- NOTE | 2024-03-11 09:44 | W.PN.HOSP.TC ---
Today's Communication/Plan
-
dc to NH
Add PRN Clonazepam
Assessment / Plan
Assessment / Plan
Physical Exam
General: No Apparent respiratory Distress, Chronically Ill
HEENT: Atraumatic, temporal wasting
Respiratory: No Wheezes
Cardiac: S1/S2
GI: Soft, Non Tender and Non Distended
Rectal: No Maroon Stools
Genito-urinary: Clear Urine
Musculoskeletal: No Cyanosis and No Edema. Generalized poor muscle bulk.
Skin: Warm; No Jaundice
Neuro: Awake, said few words, did not follow commands. )
Psych: Apparent Dementia, agitated.
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
# Change in mental status
Ruled out infectious
Likely combination of TME and medication side effects + worsening dementia and failure to thrive
No signs of active infection, normal WBC, no fevers
d/w , plan to dc to NH with hospice consult
CT of the head: No CT evidence for acute intracranial hemorrhage. Positive atrophy and volume loss of cerebrum and cerebellum.
Urine test clean
Negative COVID & Flu.
CT Chest/ abdomen/ pelvis showed no acute findings but plethora of findings including calcific atherosclerotic plaques in arteries/ground-glass opacities in lungs, sterile coral colitis/fecal impaction, abdominal aortic aneurysm 2.3 cm in diameter.
Speech therapy is recommending NPO, but will continue modified diet as comfort feeding. planning to pursue comfort measures/ hospice
PT/OT evaluation, although patient seems to have significantly diminished physical performance status
Started on low dose Risperdal. Add PRN Clonazepam. Follow-up with psychiatry recommendations
Monitored temperature curve, vitals signs
Continue with supportive care
# Moderate to severe protein-calorie malnutrition.
# Acute kidney injury.
Creatinine came down to 1.1 from 1.7 after IVF
Per record chronic kidney disease.
# Elevated BP
Could be untreated primary HTN
PRN oral amlodipine
# Scalp wound
Not bleeding. Clean wound.
# History of dementia with behavioral changes
We are now adjusting his medications to keep him calm. It might be a heard thing to achieve due to advanced dementia.
Consult psychiatry, appreciate help
# Code status, DNR
Total time spent to see the patient, examine the patient, review data and lab results, discussed treatment plan with patient,and nursing staff around 55 minutes
Anticipated Discharge: Within 24 hours
Subjective/Interval History
-
Date of Service: March 11, 2024
Awake
Objective Data
-
Vital Signs:
Vital Signs
Temp Pulse Resp BP Pulse Ox
97.6 F 86 16 153/69 91
03/11/24 07:10 03/11/24 07:10 03/11/24 07:10 03/11/24 07:10 03/11/24 07:10
I&O
03/10/24 03/11/24 03/12/24
06:59 06:59 06:59
Output Total 300 / 300 650 / 650
Balance -300 / -300 -650 / -650
[2024-03-11] MEDS: MIRALAX PO ×2 (10:58→20:25)
--- NOTE | 2024-03-11 12:52 | W.PN.UPDATE ---
Update Note
Progress Note Update
patient seen chart reviewed. spoke with nursing. at bedside. patient has not required prn risperdal. he was calm and almost smiling when i saw him . was feeding him lunch. discussed trying to get mitts off this afternoon. the fear is that
he will fiddle with head sutures. dr mallory nursing and discussed giving him a small dose of klonopin o.25 this afternoon and seeing if they could remove mitts. will check in w him tomorrow
[2024-03-11] MEDS: KLONOPIN 0.25 MG PO ×3 (14:26→22:43)
[2024-03-11 15:10] VITALS: BP 154/75
--- NOTE | 2024-03-11 18:45 | PTCARENOTE ---
Pt agitated, pulled off his mitts. Pt denying pain/no nonverbal indicators of pain. Pt pulled off condom cath. Replaced condom cath, repositioned pt, offered food/liquid without any affect. Administered PRN Klonopin 0.25mg po at 1837, will monitor.
[2024-03-11] MEDS: SENOKOT PO (20:25)
[2024-03-11] MEDS: ARICEPT 10 MG PO (22:43)
[2024-03-11 23:39] VITALS: BP 110/79
--- NOTE | 2024-03-12 06:02 | PTCARENOTE ---
B/L mitt restraints removed at 0600 03/12. Will continue to monitor.
[2024-03-12 07:10] VITALS: BP 142/76
[2024-03-12] MEDS: MIRALAX PO (09:40)
[2024-03-12] MEDS: SENOKOT PO (09:40)
[2024-03-12] MEDS: RISPERDAL 0.5 MG PO (09:44)
[2024-03-12] MEDS: FLUSH (NSS) 1 FLUSH IV (09:45)
--- NOTE | 2024-03-12 11:35 | W.PN.HOSP.TC ---
Today's Communication/Plan
-
Increase PM dose of Risperdal
DC planning
Advance to small bites diet
Assessment / Plan
Assessment / Plan
Physical Exam
General: No Apparent respiratory Distress, Chronically Ill
HEENT: Atraumatic, temporal wasting, above forehead sutures.
Respiratory: No Wheezes
Cardiac: S1/S2
GI: Soft, Non Tender and Non Distended
Rectal: No Maroon Stools
Genito-urinary: Clear Urine
Musculoskeletal: No Cyanosis and No Edema. Generalized poor muscle bulk.
Skin: Warm; No Jaundice
Neuro: Awake, said few words, did not follow commands. )
Psych: Apparent Dementia, agitated.
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
# Change in mental status
Ruled out infectious
Likely combination of TME and medication side effects + worsening dementia and failure to thrive
No signs of active infection, normal WBC, no fevers
d/w , plan to dc to NH with hospice consult
CT of the head: No CT evidence for acute intracranial hemorrhage. Positive atrophy and volume loss of cerebrum and cerebellum.
Urine test clean
Negative COVID & Flu.
CT Chest/ abdomen/ pelvis showed no acute findings but plethora of findings including calcific atherosclerotic plaques in arteries/ground-glass opacities in lungs, sterile coral colitis/fecal impaction, abdominal aortic aneurysm 2.3 cm in diameter.
Speech therapy is recommending NPO, but will continue modified diet as comfort feeding. planning to pursue comfort measures/ hospice, requested to advance to regular diet, d/w nursing staff, will do small bites for now.
PT/OT evaluation, although patient seems to have significantly diminished physical performance status
Started on low dose Risperdal. Added PRN Clonazepam. Follow-up with psychiatry recommendations
Monitored temperature curve, vitals signs
Continue with supportive care
# Moderate to severe protein-calorie malnutrition.
# Acute kidney injury.
Creatinine came down to 1.1 from 1.7 after IVF
Per record chronic kidney disease, but GFR became normal here.
# Elevated BP
Could be untreated primary HTN
PRN oral amlodipine
# Scalp wound
Not bleeding. Clean wound.
# History of dementia with behavioral changes
We are now adjusting his medications to keep him calm. It might be a hard thing to achieve due to advanced dementia. d/w psych, change to 0.5 mg Risperdal in AM, 1 mg in evening. c/w Clonazepam PRN.
Consult psychiatry, appreciate help
# Code status, DNR
Total time spent to see the patient, examine the patient, review data and lab results, discussed treatment plan with patient,and nursing staff around 55 minutes
Anticipated Discharge: Today
Subjective/Interval History
-
Date of Service: March 12, 2024
He needed the clonazepam last night for restlessness
He is off restraints since yesterday
Objective Data
-
Vital Signs:
Vital Signs
Temp Pulse Resp BP Pulse Ox
98.1 F 93 16 142/76 99
03/12/24 07:10 03/12/24 07:10 03/12/24 07:10 03/12/24 07:10 03/12/24 07:10
I&O
03/11/24 03/12/24 03/13/24
06:59 06:59 06:59
Intake Total 840 / 840
Output Total 1150 / 1150
Balance -310 / -310
--- NOTE | 2024-03-12 14:28 | W.PN.UPDATE ---
Update Note
Progress Note Update
patient seen chart reviewed. spoke with nursing and with . patient continues w periods of restlessness and picking at scalp bandage. he seemed to me to be scratching and his skin is dry. wondered if it was itchy . discussed w and nursing
aquaphor to relieve dryness and perhaps a tegaderm dressing which would also be harder for him to dislodge. another idea would be a cotton skullcap. says he frequently wears a hat. discussed w dr shawnee keene in risperdal to o.5 in am and one at
hs. he did receive three klonopin prn yesterday. thought he might have been a little oversedated. today he was alert and wide awake and other than scratching at head was very calm and comfortable. will follow
[2024-03-12 15:10] VITALS: BP 113/74
[2024-03-12] MEDS: RISPERDAL 1 MG PO (17:05)
[2024-03-12] MEDS: ARICEPT 10 MG PO (20:57)
[2024-03-12] MEDS: PEPCID 20 MG PO (20:58)
[2024-03-12 23:30] VITALS: BP 133/66
[2024-03-13 07:30] VITALS: BP 156/63
[2024-03-13] MEDS: RISPERDAL 0.5 MG PO (08:50)
[2024-03-13] MEDS: SENOKOT 17.2 MG PO (08:50)
--- NOTE | 2024-03-13 11:41 | W.PN.HOSP.TC ---
Today's Communication/Plan
-
dc to SNF
prognosis poor
Risperdal per psych
Assessment / Plan
Assessment / Plan
Physical Exam
General: No Apparent respiratory Distress, Chronically Ill
HEENT: Atraumatic, temporal wasting, above forehead sutures.
Respiratory: No Wheezes
Cardiac: S1/S2
GI: Soft, Non Tender and Non Distended
Rectal: No Maroon Stools
Genito-urinary: Clear Urine
Musculoskeletal: No Cyanosis and No Edema. Generalized poor muscle bulk.
Skin: Warm; No Jaundice
Neuro: Awake, said few words, did not follow commands. )
Psych: Apparent Dementia, agitated.
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
# Change in mental status
Ruled out infectious
Likely combination of TME and medication side effects + worsening dementia and failure to thrive
No signs of active infection, normal WBC, no fevers
Dr. Brandon d/w , plan to dc to NH with hospice consult
CT of the head: No CT evidence for acute intracranial hemorrhage. Positive atrophy and volume loss of cerebrum and cerebellum.
Urine test clean
Negative COVID & Flu.
CT Chest/ abdomen/ pelvis showed no acute findings but plethora of findings including calcific atherosclerotic plaques in arteries/ground-glass opacities in lungs, sterile coral colitis/fecal impaction, abdominal aortic aneurysm 2.3 cm in diameter.
Speech therapy is recommending NPO, but will continue modified diet as comfort feeding. planning to pursue comfort measures/ hospice, requested to advance to regular diet, d/w nursing staff, will do small bites for now.
PT/OT evaluation, although patient seems to have significantly diminished physical performance status
Started on low dose Risperdal. Added PRN Clonazepam. Follow-up with psychiatry recommendations
Monitored temperature curve, vitals signs
Continue with supportive care
# Moderate to severe protein-calorie malnutrition.
# Acute kidney injury.
Creatinine came down to 1.1 from 1.7 after IVF
Per record chronic kidney disease, but GFR became normal here.
# Elevated BP
Follow-up outpatient with primary doctor.
Has not received any medication.
Intermittent with low blood pressure and risk of falls. If persistently elevated for long period of time then consider starting standing meds.
# Scalp wound
Not bleeding. Clean wound.
# History of dementia with behavioral changes
We are now adjusting his medications to keep him calm. It might be a hard thing to achieve due to advanced dementia. d/w psych, change to 0.5 mg Risperdal in AM, 1 mg in evening. c/w Clonazepam PRN.
Consult psychiatry, appreciate help
# Code status, DNR. Prognosis poor.
More than 30 minutes spent in discharge including
Final examination of the patient
Summarizing hospital stay
Instructions for continuing care to all relevant caregivers
Preparation of discharge records, prescriptions, and referral forms
Total time spent (in minutes): 55
Anticipated Discharge: Today
Subjective/Interval History
-
Date of Service: March 13, 2024
took meds
Rn assisting wtih feeding
opens eye and speaks in few words
calm
Objective Data
-
Vital Signs:
Vital Signs
Temp Pulse Resp BP Pulse Ox
97.5 F 91 18 156/63 99
03/13/24 07:30 03/13/24 07:30 03/13/24 07:30 03/13/24 07:30 03/13/24 08:47
I&O
03/12/24 03/13/24 03/14/24
06:59 06:59 06:59
Intake Total 840 / 840 120 / 120
Output Total 1150 / 1150 200 / 200
Balance -310 / -310 -80 / -80
--- NOTE | 2024-03-13 11:56 | W.DCSUMMARY ---
Discharge Summary
Discharge Data
Date of Admission: 03/08/24
Date of Discharge: 03/13/24
-
Pending Results: No
Hospital Course
83 years old male with frontal temporal dementia and behavioral changes admitted with progressive decline in mental status, rapidly in last 2 days prior to arrival. It was deemed the change in mental status was multifactorial likely combination of
medication side effect versus worsening of dementia and failure to thrive. No signs of active infection was noted. White count was within normal limits. No fevers. CT of the head with no evidence of acute intracranial hemorrhage. Positive
atrophy and volume loss of cerebrum and cerebellum. UA was clean. Negative for COVID and influenza. CT Chest/ abdomen/ pelvis showed no acute findings but plethora of findings including calcific atherosclerotic plaques in arteries/ground-glass
opacities in lungs, sterile coral colitis/fecal impaction, abdominal aortic aneurysm 2.3 cm in diameter. Speech therapy is recommending NPO, but will continue modified diet as comfort feeding. planning to pursue comfort measures/ hospice,
requested to advance to regular diet, d/w nursing staff, will do small bites for now. Patient also had acute kidney injury which resolved with IV fluid resuscitation. Creatinine down trended. Psychiatry was also consulted and recommended
discontinue Seroquel and start patient on Risperdal standing BID and as needed.
Discharge Plan
-
Patient Disposition: [facility]/SNF
Discharge Diagnosis/Procedures: Toxic metabolic encephalopathy likely secondary to side effect from medication versus worsening of dementia
Failure to thrive
Moderate to severe protein caloric malnutrition
Acute kidney injury
History of dementia with behavioral changes
Condition: Fair
Diet: As tolerated
Other Services: Hospice
Referrals:
Valentin Manriquez, [Family Provider] - in less than 1 week
Additional Discharge Medication Instructions: Klonopin, Seroquel and trazodone was discontinued
Prescriptions:
New
risperidone 1 mg Tablet
1 mg PO 1800 30 Days Qty: 30 0RF
risperidone 0.5 mg Tablet
0.5 mg PO DAILY 30 Days Qty: 30 0RF
risperidone 0.5 mg Tablet
0.5 mg PO Q6HPRN PRN (Reason: Agitation) Qty: 30 0RF
sennosides [Anahy-edison] 8.6 mg Tablet
17.2 mg PO DAILY 30 Days Qty: 60 0RF
Continued
acetaminophen 325 mg Tablet
650 mg PO Q6HPRN PRN (Reason: mild pain/fever>100.4)
donepezil 10 mg Tablet
10 mg PO HS
bacitracin 500 unit/gram Ointment
1 applic TOPICAL BID
melatonin 3 mg Tablet
3 mg PO HS
magnesium hydroxide [Milk of Magnesia] 400 mg/5 mL Suspension
30 ml PO [id number] PRN (Reason: no bm in 3 days)
bisacodyl 10 mg Suppository
10 mg MT DAILYPRN PRN (Reason: if mom ineffective)
Fleet Enema 19-7 gram/118 mL Enema
118 ml MT DAILYPRN PRN (Reason: if suppository ineffective)
Discontinued
trazodone 50 mg Tablet
25 mg PO HS
clonazepam 0.5 mg Tablet
0.5 mg PO TID
quetiapine 200 mg Tablet
200 mg PO HS
quetiapine 50 mg Tablet
50 mg PO DAILY
Discharge Orders:
Discharge Patient (As Directed); Ordered 03/13/24
Ordered By: Kris Gutierrez
Discharge Date and Time
Print Language: UKRAINIAN
--- NOTE | 2024-03-13 12:53 | CM ---
CM reviewed chart, patient stable for discharge. DIANA spoke with Verna from [facility] along with HERMELINDA from [facility], able to admit patient for services today back at [facility]. CM spoke with patients , Jennie, discussed 3:00 p.m.
ambulance transport, IMM verbally reviewed, placed in chart. CM will continue to follow for all discharge planning needs.
Plan; return to [facility] with [facility], 3:00 p.m. ambulance transport
[facility]
report# [phone]

[facility]
[email or web address] fax to [phone]
[2024-03-13 14:37] VITALS: BP 131/53
== END 2024-03-13 17:35 | DRG 884 ==
LOC: 4 EAST ACU 16:54
PROVIDERS: ADMITTING PHYSICIAN Internal Medicine; ATTENDING PHYSICIAN Hospitalist; CONSULT PHYSICIAN Psychiatry & Neurology Psychiatry; EMERGENCY PHYSICIAN Emergency Medicine; FAMILY PHYSICIAN Internal Medicine
DX: F03.918 Unspecified dementia, unspecified severity, with other behavioral disturbance (principal); G92.8 Other toxic encephalopathy; E43 Unspecified severe protein-calorie malnutrition; Z68.1 Body mass index [BMI] 19.9 or less, adult; N17.9 Acute kidney failure, unspecified; R47.01 Aphasia; R62.7 Adult failure to thrive; Z11.52 Encounter for screening for COVID-19; N18.9 Chronic kidney disease, unspecified; I12.9 Hypertensive chronic kidney disease with stage 1 through stage 4 chronic kidney disease, or unspecified chronic kidney disease; E78.00 Pure hypercholesterolemia, unspecified; G31.09 Other frontotemporal neurocognitive disorder; K52.9 Noninfective gastroenteritis and colitis, unspecified; K56.41 Fecal impaction; I71.40 Abdominal aortic aneurysm, without rupture, unspecified; Z66 Do not resuscitate
CPT/HCPCS: 51701; 70450; 71250; 72125; 73502; 73552; 74176; 80048; 80053; 81003; 82607; 82746; 84443; 84484; 85025; 85027; 87070; 87502; 87811; 92610; 93005; 96360; 97163; 97167; 97530; 99285